=== PATIENT | female | born 1995 | race African-American/Black ===

== ENCOUNTER 2018-05-05 05:04 | Day surgery (SDC) | payer MEDICAID, OTHER ==
[2018-05-05 05:31] VITALS: BP 122/74; TEMP 98.1; BMI 37.8
--- NOTE | 2018-05-05 12:16 | SS ---
DATE OF EVALUATION: 05/05/2018 LABOR AND DELIVERY TRIAGE NOTE EVALUATING PHYSICIAN: Nelson Arriaga M.D. CHIEF COMPLAINT: Bleeding after intercourse. HISTORY OF PRESENT ILLNESS: Ms. Taylor is a 23-year-old black G1, P0, estimated date of confinemen t of 09/11/2018 who presents complaining of vaginal spotting after having intercourse at approximatel y 10:30 last evening. She denies loss of fluid or contractions. Her care has been in [place], [place]. PAST MEDICAL HISTORY: None. PAST SURGICAL HISTORY: None. MEDICATIONS: vitamins. ALLERGIES: No known allergies. SOCIAL HISTORY: Denies tobacco, alcohol or drug use. FAMILY HISTORY: Unremarkable. REVIEW OF SYSTEMS: Denies nausea, vomiting, fever, chills or cramping. PHYSICAL EXAMINATION: VITAL SIGNS: Stable. She is afebrile. ABDOMEN: Soft and nontender. heart tones are dopplered at 150s. The [place] monitor shows no co ntractions. On pelvic examination, speculum exam shows no bleeding in the vagina with a closed cervi x. There is a small labial laceration on the right side. It is small and is not deep. ASSESSMENT: 1. 21-4/7th week intrauterine . 2. Small labial abrasion after intercourse. PLAN: The patient will be discharged to home. She needs to keep the area clean and dry and let this area heal normally. She will follow up in [place] for her next appointment.
== END 2018-05-05 07:00 | disposition home or self-care (01) ==
LOC: L&D/OP 05:04
PROVIDERS: ATTEND Obstetrics & Gynecology
DX: O26.852 Spotting complicating pregnancy, second trimester (principal); Z3A.21 21 weeks gestation of pregnancy
CPT/HCPCS: 99282